=== PATIENT | male | born 1995 | race African-American/Black ===

== ENCOUNTER 2016-08-16 21:00 | Emergency (ER) | payer OTHER ==
--- NOTE | ~2016-08-16 | CR142 ---
[facility] RADIOLOGY TEXT RESULTS PATIENT: YUMIKO BRENNER LOCATION: SED : [birth year] UNIT #: [id number] AGE: [address]: CLEOPATRA KIMBLE SEX: M ORDER DR: [id number] [place] [id number] E MR#: [id number] Acc #: [id number] NAME: YUMIKO BRENNER : 1995 SEX: M STUDY DATE/TIME: 08/16/2016 22:16 UNIT: SED ROOM: STUDY DESCRIPTION: CR Hand Min 3 Views Rt Attending Physician: Cleopatra Kimble Aprn Ordering Physician: Cleopatra Kimble Aprn Primary Care Physician: No Primary Care Physician MEDICAL IMAGING REPORT This report is preliminary unless electronic signature is present. EXAM Right hand. DATE OF EXAM 08/16/2016 HISTORY 20-year-old male with right hand pain status post fall tonight. COMPARISON None. FINDINGS 3 views of the right hand demonstrates a displaced and angulated transverse fracture of the distal metaphysis of the fifth metacarpal. There is marked apex dorsal angulation with at least 1 cm of impaction at the fracture site. No articular surface disruption or dislocation. Vsxv-as-dihxpzqb soft-tissue swelling along the dorsal and ulnar aspect of the hand. IMPRESSION Markedly impacted and angulated transverse fracture of the distal metaphysis of the fifth metacarpal. No articular surface disruption. No dislocation. Dictated by... Ander Vazquez M.D. THIS IS AN ELECTRONICALLY VERIFIED REPORT Ander Vazquez M.D. at 08/20/2016 7:50 AM JKB/jt [facility] RADIOLOGY TEXT RESULTS PATIENT: YUMIKO BRENNER LOCATION: SED : [birth year] UNIT #: [id number] AGE: [address]: CLEOPATRA KIMBLE SEX: M ORDER DR: TD: 08/17/2016 02:35 JOB #: [id number] MEDICAL IMAGING REPORT Page 1 of 1
[~2016-08-16 21:00] MED LIST: PROMETHAZINE D118 ML PO; ZITHROMAX PO
[2016-08-16] MEDS ORDERED: NO MEDICATIONS (21:17)
== END 2016-08-16 23:25 | disposition home or self-care (01) ==
LOC: SED 21:00
DX: S62.396A Other fracture of fifth metacarpal bone, right hand, initial encounter for closed fracture (principal); W20.8XXA Other cause of strike by thrown, projected or falling object, initial encounter
CPT/HCPCS: 29280; 73130; 96372; 99283; J1885